=== PATIENT | male | born 1995 | race American Indian/Alaskan Native ===

== ENCOUNTER 2017-04-09 15:56 | Emergency (ER) | payer SELFPAY ==
[2017-04-09 16:17] VITALS: BP 118/72
== END 2017-04-09 20:46 | disposition left against medical advice (07) ==
LOC: ED 15:56
DX: J11.1 Influenza due to unidentified influenza virus with other respiratory manifestations (principal); Z53.21 Procedure and treatment not carried out due to patient leaving prior to being seen by health care provider
CPT/HCPCS: 87116; 87430

== ENCOUNTER 2021-07-16 02:52 | Emergency (ER) | payer SELFPAY | END 2021-07-16 03:00 | disposition left against medical advice (07) | LOC: ED 02:52 | DX: R10.9 Unspecified abdominal pain (principal); Z53.21 Procedure and treatment not carried out due to patient leaving prior to being seen by health care provider ==

== ENCOUNTER 2021-07-16 20:04 | Emergency (ER) | payer SELFPAY ==
[2021-07-16 20:39] LABS: Bilirubin,Urine NEG (Negative); Blood,Urine NEG (Negative); Color,Urine Yellow (Yellow); WBC,Urine < 1.0 /HPF (0.0-6.0)
[2021-07-16 20:43] LABS: RBC,Urine < 1.0 /HPF (0.0-6.0)
[2021-07-16 21:57] LABS: Basophils % (Auto) 0.4 % (0.0-1.8); Eosinophils # (Auto) 0.1 K/mm3 (0.0-0.4); Eosinophils % (Auto) 0.8 % (0.0-4.3); Hematocrit 44.6 % (35.5-45.6); Lymphocytes # (Auto) 2.3 K/mm3 (1.2-5.4); Lymphocytes % (Auto) 25.7 % (13.4-35.0); Mean Corpuscular HGB Conc 34 % (32-34); Mean Corpuscular Volume 92 fl (84-94); Monocytes # (Auto) 1.3 K/mm3 (0.0-0.8); Monocytes % (Auto) 14.1 % (0.0-7.3); Platelet Count 360 K/mm3 (140-440); Red Blood Count 4.84 M/mm3 (3.65-5.03); Red Cell Distribution Width 13.4 % (13.2-15.2)
[2021-07-16 22:17] LABS: Albumin 3.9 g/dL (3.9-5); Calcium 9.6 mg/dL (8.4-10.2)
[2021-07-17] MEDS ORDERED: SODIUM CHLORIDE 0.9% 1000 ML 1,000 ML IV ONE (01:23)
[2021-07-17] MEDS ORDERED: FAMOTIDINE 20 MG/2 ML INJ IV ONE (01:24)
[2021-07-17] MEDS ORDERED: ONDANSETRON 4 MG/2 ML INJ IV ONE (01:24)
--- NOTE | 2021-07-17 02:57 | Cat Scan Report ---
CT ABDOMEN AND PELVIS WITHOUT CONTRAST INDICATION / CLINICAL INFORMATION: RIGHT sided flank pain with nausea, vomiting and diarrhea. TECHNIQUE: Axial CT images were obtained through the abdomen and pelvis without IV contrast. All CT scans at this location are performed using CT dose reduction for ALARA by means of automated exposure control. COMPARISON: None available. FINDINGS: LOWER CHEST: No significant abnormality of the imaged chest. LIVER: No significant abnormality. GALLBLADDER: No significant abnormality. BILE DUCTS: No significant abnormality. SPLEEN: No significant abnormality. PANCREAS: No significant abnormality. ADRENALS: No significant abnormality. RIGHT KIDNEY / URETER: 2 mm stone at the right UVJ with associated mild to moderate hydronephrosis an d obstructive change. Mild right renal edema present. LEFT KIDNEY / URETER: No significant abnormality. STOMACH / DUODENUM / SMALL BOWEL: No significant abnormality. COLON: No significant abnormality. APPENDIX: No significant abnormality. PERITONEUM: No free air or free fluid are present within the abdomen or pelvis. LYMPH NODES: No significant adenopathy. AORTA / ARTERIES: No significant abnormality. IVC / VEINS: No significant abnormality. URINARY BLADDER: No significant abnormality. REPRODUCTIVE ORGANS: No significant abnormality. ADDITIONAL ABDOMINAL/PELVIC FINDINGS: None. SKELETAL SYSTEM: No significant abnormality. IMPRESSION: 1. 2 mm stone at the right UVJ with associated mild to moderate obstructive changes. Signer Name: Sundeep Martínez II, MD Signed: 07/17/2021 2:53 AM Workstation Name: [id number]
[2021-07-17] MEDS ORDERED: TAMSULOSIN 0.4 MG CAP PO ONE (03:08)
--- NOTE | 2021-07-17 03:41 | Emergency Department Report ---
ED Abdominal Pain HPI - General Chief Complaint: Abdominal Pain Stated Complaint: ABD PAIN/NAUSEA Source: patient Mode of arrival: Ambulatory Limitations: No Limitations - History of Present Illness Initial Comments: Patient is a 26-year-old -Maldivian male with no past medical history presents to the ED with complaint of acute onset persistent right flank pain that radiates to the right lower quadrant area and suprapubic area with nausea and vomiting and diarrhea for the last 2 days. Patient also complains of subjective fever, headache, lack of appetite and generalized weakness. Patient denies testicular pain, dysuria, urinary frequency and urgency, hematuria, chest pain or shortness of breath, cough, sore throat, traumatic injury or heavy lifting, low back pain, dizziness or syncope. MD Complaint: abdominal pain, flank pain (Right flank pain), other (Nausea, vomiting and diarrhea) -: Sudden, days(s) (2) Location: suprapubic, R flank Radiation: RLQ, suprapubic, R flank Migration to: no migration Severity: severe Severity scale (0 -10): 7 Quality: aching, sharp Consistency: constant Improves With: nothing Worsens With: movement Associated Symptoms: denies other symptoms, nausea, vomiting, diarrhea, anorexia. denies: fever, chills, constipation, dysuria, hematemesis, melena, hematuria, syncope - Related Data Previous Rx's Medication Instructions Recorded Last Taken Type Ondansetron [Zofran Odt] 4 mg PO Q6HR PRN #20 tab.rapdis 07/17/21 Unknown Rx Tamsulosin [Flomax] 0.4 mg PO QDAY #10 cap 07/17/21 Unknown Rx traMADoL [Ultram] 50 mg PO Q6HR PRN #15 tablet 07/17/21 Unknown Rx Allergies Allergy/AdvReac Type Severity Reaction Status Date / Time No Known Allergies Allergy Verified 04/09/17 16:18 ED Review of Systems ROS: Stated complaint: ABD PAIN/NAUSEA Other details as noted in HPI Constitutional: denies: chills, fever Eyes: denies: eye pain, eye discharge, vision change ENT: denies: ear pain, throat pain Respiratory: denies: cough, shortness of breath, wheezing Cardiovascular: denies: chest pain, palpitations Endocrine: no symptoms reported Gastrointestinal: abdominal pain (Right flank pain), nausea, vomiting, diarrhea Genitourinary: denies: urgency, dysuria Musculoskeletal: denies: back pain, joint swelling, arthralgia Skin: denies: rash, lesions Neurological: denies: headache, weakness, paresthesias Psychiatric: denies: anxiety, depression Hematological/Lymphatic: denies: easy bleeding, easy bruising ED Past Medical Hx - Medications Home Medications: Home Medications Medication Instructions Recorded Confirmed Last Taken Type Ondansetron [Zofran Odt] 4 mg PO Q6HR PRN #20 tab.rapdis 07/17/21 Unknown Rx Tamsulosin [Flomax] 0.4 mg PO QDAY #10 cap 07/17/21 Unknown Rx traMADoL [Ultram] 50 mg PO Q6HR PRN #15 tablet 07/17/21 Unknown Rx ED Physical Exam - General Limitations: No Limitations General appearance: alert, in no apparent distress - Head Head exam: Present: atraumatic, normocephalic, normal inspection - Eye Eye exam: Present: normal appearance, PERRL, EOMI Pupils: Present: normal accommodation - ENT ENT exam: Present: normal exam, normal orophraynx, mucous membranes moist, TM's normal bilaterally, normal external ear exam - Neck Neck exam: Present: normal inspection, full ROM. Absent: tenderness - Respiratory Respiratory exam: Present: normal lung sounds bilaterally. Absent: respiratory distress, wheezes, rales, rhonchi, chest wall tenderness, accessory muscle use, decreased breath sounds, prolonged expiratory - Cardiovascular Cardiovascular Exam: Present: regular rate, normal rhythm, normal heart sounds. Absent: systolic murmur, diastolic murmur, rubs, gallop - GI/Abdominal GI/Abdominal exam: Present: soft, tenderness (Palpable right flank and right lower quadrant tenderness), normal bowel sounds. Absent: guarding, rebound, rigid, hyperactive bowel sounds, hypoactive bowel sounds - Extremities Exam Extremities exam: Present: normal inspection, full ROM, normal capillary refill. Absent: tenderness - Back Exam Back exam: Present: normal inspection, full ROM. Absent: tenderness, CVA tenderness (R), CVA tenderness (L), muscle spasm, paraspinal tenderness, vertebral tenderness - Neurological Exam Neurological exam: Present: alert, oriented X3, CN II-XII intact, normal gait, reflexes normal - Psychiatric Psychiatric exam: Present: normal affect, normal mood - Skin Skin exam: Present: warm, dry, intact, normal color. Absent: rash ED Course Vital Signs 07/16/21 20:09 Temperature 98.4 F Pulse Rate 93 H Respiratory 18 Rate Blood Pressure 130/87 O2 Sat by Pulse 97 Oximetry ED Medical Decision Making - Lab Data Result diagrams: 07/16/21 21:01 07/16/21 21:01 - Radiology Data Radiology results: report reviewed, image reviewed [facility] [address] [place] [address] Cat Scan Report Signed Patient: FRANTZ TARANGO MR#: [id number] : 1995 Acct:[id number] Age/Sex: 26 / M ADM Date: 07/16/21 Loc: ED Attending Dr: Ordering Physician: LAYO HORNER Date of Service: 07/17/21 Procedure(s): CT abdomen pelvis wo con Accession Number(s): [id number] cc: LAYO HORNER CT ABDOMEN AND PELVIS WITHOUT CONTRAST INDICATION / CLINICAL INFORMATION: RIGHT sided flank pain with nausea, vomiting and diarrhea. TECHNIQUE: Axial CT images were obtained through the abdomen and pelvis without IV contrast. All CT scans at this location are performed using CT dose reduction for ALARA by means of automated exposure control. COMPARISON: None available. FINDINGS: LOWER CHEST: No significant abnormality of the imaged chest. LIVER: No significant abnormality. GALLBLADDER: No significant abnormality. BILE DUCTS: No significant abnormality. SPLEEN: No significant abnormality. PANCREAS: No significant abnormality. ADRENALS: No significant abnormality. RIGHT KIDNEY / URETER: 2 mm stone at the right UVJ with associated mild to moderate hydronephrosis and obstructive change. Mild right renal edema present. LEFT KIDNEY / URETER: No significant abnormality. STOMACH / DUODENUM / SMALL BOWEL: No significant abnormality. COLON: No significant abnormality. APPENDIX: No significant abnormality. PERITONEUM: No free air or free fluid are present within the abdomen or pelvis. LYMPH NODES: No significant adenopathy. AORTA / ARTERIES: No significant abnormality. IVC / VEINS: No significant abnormality. URINARY BLADDER: No significant abnormality. REPRODUCTIVE ORGANS: No significant abnormality. ADDITIONAL ABDOMINAL/PELVIC FINDINGS: None. SKELETAL SYSTEM: No significant abnormality. IMPRESSION: 1. 2 mm stone at the right UVJ with associated mild to moderate obstructive changes. Signer Name: Nathan Barrera II, MD Signed: 07/17/2021 2:53 AM Workstation Name: [id number] Transcribed By: FLACO Dictated By: NATHAN BARRERA II, MD Electronically Authenticated By: NATHAN BARRERA II, MD Signed Date/Time: 07/17/21252 DD/ 0 TD/TT: - Medical Decision Making This is a 26-year-old -Maldivian male with no past medical history presents to the ED with complaint of acute onset persistent right flank pain that radiates to the right lower quadrant area and suprapubic area with nausea and vomiting and diarrhea for the last 2 days. Patient also complains of subjective fever, headache, lack of appetite and generalized weakness. In the ED, patient is alert and oriented x3 and is not in any distress. Patient lab test results were reviewed and are all nonactionable except for creatinine of 1.7. Abdomen pelvis CT scan without contrast showed a 2 mm stone at the right UVJ with associated mild to moderate obstructive changes. Patient was treated for pain in the ED and also received normal saline 1 L IV bolus x1. On reevaluation, patient's pain is well controlled medication. Patient was discharged home on pain medications and Flomax and advised to follow-up with urologist Dr. Wilkerson in 3 to 5 days for reevaluation or return to the ED immediately if symptoms get worse. - Differential Diagnosis Kidney stone; dehydration; gastroenteritis; appendicitis; UTI Critical care attestation.: If time is entered above; I have spent that time in minutes in the direct care of this critically ill patient, excluding procedure time. ED Disposition Clinical Impression: Acute abdominal pain in right flank, Nausea, vomiting and diarrhea, Kidney stone on right side, Ureteric colic, Dehydration Disposition: 01 HOME / SELF CARE / HOMELESS Is pt being admited?: No Does the pt Need Aspirin: No Condition: Stable Instructions: Kidney Stones, [id number], Dehydration, Adult, [id number], Flank Pain, Adult, [id number], Abdominal Pain, Adult, [id number], Nausea and Vomiting, Adult, [id number]-[id number], Diarrhea, Adult, [id number] Additional Instructions: All lab test results were reviewed and are all nonactionable except for creatinine that was elevated at 1.7 due to dehydration. The abdomen pelvis CT scan with contrast showed a 2 mm stone at the right UVJ with associated mild to moderate obstructive changes. Therefore take medication with food, drink plenty of fluids and follow-up with the urologist Dr. Wilkerson in 3 to 5 days for reevaluation. Return to the ED immediately if symptoms get worse. Prescriptions: Tamsulosin [Flomax] 0.4 mg PO QDAY #10 cap traMADoL [Ultram] 50 mg PO Q6HR PRN #15 tablet PRN Reason: Pain Ondansetron [Zofran Odt] 4 mg PO Q6HR PRN #20 tab.rapdis PRN Reason: Nausea Referrals: JEANMARIE WILKERSON MD [Staff Physician] - 3-5 Days RAFAEL MONTERO MD [Primary Care Provider] - 7-10 days Forms: Work/School Release Form(ED) Time of Disposition: 03:45 Print Language: LATVIAN
[2021-07-17 03:58] VITALS: BP 128/72
== END 2021-07-17 03:58 | disposition home or self-care (01) ==
LOC: ED 20:04
DX: R10.31 Right lower quadrant pain (principal); R11.2 Nausea with vomiting, unspecified; R19.7 Diarrhea, unspecified; N20.0 Calculus of kidney; R53.1 Weakness
CPT/HCPCS: 36415; 74176; 80053; 81001; 85025; 96361; 96374; 96375; 99284; J2405; J3490; J7030; Q0162

== ENCOUNTER 2021-11-21 13:57 | Emergency (ER) | payer SELFPAY ==
[2021-11-21 14:11] VITALS: BP 133/83
--- NOTE | 2021-11-21 14:12 | Emergency Department Report ---
Minor Respiratory - HPI Chief Complaint: Sore Throat Stated Complaint: SORE THROAT Time Seen by Provider: 11/21/21 14:11 Duration: 2 Days Pain Location: Throat Severity: moderate Minor Respiratory: Yes Sore Throat, Yes Able to Tolerate Fluids, No Rhinorrhea, No Ear Pain, No Cough, No Sick Contacts, No Hemoptysis, No Chest Pain, No Shortness of Breath, No Fever Other History: 26 yo comes to ER with sore throat x 2 days. No fever or chills. No cough or congestion. No abd pain. No back pain. No dysuria. No recent illnes. ABC intact. VSS. Taking po ED Review of Systems ROS: Stated complaint: SORE THROAT Other details as noted in HPI Comment: All other systems reviewed and negative ED Past Medical Hx - Past Medical History Previous Medical History?: No - Surgical History Past Surgical History?: No - Family History Family history: no significant - Social History Smoking Status: Never Smoker - Medications Home Medications: Home Medications Medication Instructions Recorded Confirmed Last Taken Type Ondansetron [Zofran Odt] 4 mg PO Q6HR PRN #20 tab.rapdis 07/17/21 Unknown Rx Tamsulosin [Flomax] 0.4 mg PO QDAY #10 cap 07/17/21 Unknown Rx traMADoL [Ultram] 50 mg PO Q6HR PRN #15 tablet 07/17/21 Unknown Rx Amoxicillin [Trimox CAP] 500 mg PO BID #20 capsule 11/21/21 Unknown Rx Minor Respiratory Exam - Exam General: Vital signs noted. No distress. Alert and acting appropriately. HEENT: Yes Pharyngeal Erythema, Yes Pharyngeal Exudates, Yes Moist Mucous Membranes, No Rhinorrhea, No Conjuctival Injection, No Frontal Tenderness, No M axillary Tenderness Ear: Neither TM Bulge, Neither TM Erythema, Neither EAC Pain, Neither EAC Discharge Neck: Yes Supple, No Adenopathy Lungs: Yes Good Air Exchange, No Wheezes, No Ronchi, No Stridor, No Cough, No Labored Respirations, No Retractions, No Use of Accessory Muscles, No Other Abnormal Lung Sounds Heart: Yes Regular, No Murmur Abdomen: Yes Normal Bowel Sounds, No Tenderness, No Peritoneal Signs Skin: No Rash, No Edema Neurologic: Alert and oriented, no deficits. Musculoskeletal: Unremarkable. ED Course Vital Signs 11/21/21 14:08 Temperature 99.3 F Pulse Rate 107 H Blood Pressure 133/83 [Left] O2 Sat by Pulse 96 Oximetry ED Medical Decision Making - Medical Decision Making Vital Signs 11/21/21 14:08 Temperature 99.3 F Pulse Rate 107 H Blood Pressure 133/83 [Left] O2 Sat by Pulse 96 Oximetry no abscess taking po controlling secretions no sob no cp HR on exam 88 exudates on exam dc home with dc plan of care including diet, meds, activity and follow up . Pt verbalizes understanding of dc plan of care. - Differential Diagnosis uri/pharyngitis Critical care attestation.: If time is entered above; I have spent that time in minutes in the direct care of this critically ill patient, excluding procedure time. ED Disposition Clinical Impression: Exudative pharyngitis Disposition: 01 HOME / SELF CARE / HOMELESS Is pt being admited?: No Does the pt Need Aspirin: No Condition: Stable Instructions: Pharyngitis Additional Instructions: MED ORDERED TODAY UNTIL GONE FOLLOW UP WITH PCP NEXT WEEK TO BE SURE YOU ARE BETTER MOTRIN OR TYLENOL FOR PAIN OR FEVER STAY WELL HYDRATED WITH WATER Prescriptions: Amoxicillin [Trimox CAP] 500 mg PO BID #20 capsule Referrals: RAFAEL MONTERO MD [Primary Care Provider] - 3-5 Days Forms: Work/School Release Form(ED) Time of Disposition: 14:26
[2021-11-21] MEDS ORDERED: dexAMETHasone 4 MG/ML VIAL IM ONE (14:27)
[2021-11-21] MEDS ORDERED: AMOXICILLIN 500 MG CAP PO ONE (14:28)
== END 2021-11-21 15:06 | disposition home or self-care (01) ==
LOC: ED 13:57
DX: J02.9 Acute pharyngitis, unspecified (principal)
CPT/HCPCS: 96372; 99282; J1100